=== PATIENT | male | born 1990 | race Caucasian/White ===

== ENCOUNTER 2019-08-11 02:04 | Emergency (ER) | payer OTHER ==
[~2019-08-11] VITALS: Ht 160 cm; Wt 115.2 kg
[~2019-08-11 02:04] MED LIST: ALBU2.5V3 NEB; ALBU8.5H8 INH; FLUT12HF IH; PRED20TA PO
[2019-08-11 02:07] VITALS: BP 152/77; RESP 22; Ht 160 cm; Wt 115.2 kg
[2019-08-11] MEDS ORDERED: LEVALBUTEROL (NEB) 1.25 MG/0.5 ML AMP INH STA (03:08)
[2019-08-11] MEDS ORDERED: IPRATROPIUM (NEB) 0.5 MG/2.5 ML AMP NEB STA (03:08)
[2019-08-11] MEDS ORDERED: predniSONE 20 MG TAB PO ONE (03:30)
[2019-08-11 03:50] VITALS: PULSE 86
== END 2019-08-11 03:51 | disposition home or self-care (01) ==
LOC: E/R 02:04
DX: J45.901 Unspecified asthma with (acute) exacerbation (principal)
CPT/HCPCS: 94664; J7512; Z7502; Z7610